=== PATIENT | female | born 1970 | race Two or more races ===

== ENCOUNTER 2024-10-04 08:26 | Emergency (ER) | payer MEDICAID, SELFPAY ==
--- NOTE | 2024-10-04 08:32 | EKG_ITS ---
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
--- NOTE | 2024-10-04 08:42 | XR_ITS ---
Examination: PA lateral chest 2 views Technique: Upright PA lateral chest 2 views Exam date and time: October 04, 2024 0824 hrs. Comparison January 25, 2023 Indications: Onset chest pain today Findings: Normal heart size Mild opacity obscuring detail left cardiac contour and minimal opacity right base No pulmonary edema Impression: Suspicious for early pneumonia right base and lingular segment left upper lobe
--- NOTE | 2024-10-04 08:43 | PD.EDRME ---
Rapid Medical Screening Exam RME Arrival date/time: 10/04/24 08:26 54-year-old female presents to the emergency department with complaints of generalized malaise, chest pain 1 week. I have greeted and performed a focused initial assessment of this patient. Initial appropriate labs ordered at this time. A comprehensive ED assessment and evaluation of the patient and analysis of all test and completion of medical decision making process will be conducted by additional ED provider.
[2024-10-04 08:46] VITALS: BP 166/100; PULSE 86; RESP 24; TEMP 36.8; O2SAT 99; BMI 31.7
--- NOTE | 2024-10-04 09:12 | PD.EDADULT ---
ED General RME/HPI General Chief complaint: Chest Pain Stated complaint: UPPER MID CHEST PAIN RAD. THROUGH BACK X6D Time Seen by Provider: 10/04/24 08:50 Arrival date/time: 10/04/24 08:26 RME / HPI RME / HPI narrative: Patient is a 54 years old female with no significant past medical history presented to the emergency department complaining of chest pain for 1 week. She reports pain is mostly constant, stabbing in nature and is exacerbated by deep breathing, moving and applying pressure on her chest. She reports no PMH but reports her BP was previously found to be elevated. She denies any trauma, fever, chills, SOB, abdominal pain, dysuria symptoms, diarrhea. Related Data Previous Rx's ?Medication ?Instructions ?Recorded Hydrocodone/Acetaminophen * (NORCO 1 tab PO Q6H PRN PAIN #20 tabs 02/22/15 5/325 *) Allergies Allergy/AdvReac Type Severity Reaction Status Date / Time No Known Allergies Allergy Verified 10/04/24 08:30 Review of Systems Review of Systems Systems Reviewed: All systems reviewed, normal except as documented ED Exam Narrative Physical exam: Gen: Well-developed and well-nourished female. HEENT: NCAT, PERRLA, EOMI, MMM, anicteric conjunctivae. CVS: normal S1 and S2. RRR. No M/R/G. Resp: CTA B/L. No rhonchi, rales, crackles or wheezing. Abd: soft, obese, non-tender, non-distended. BS+ in all 4 quadrants. MSK: Good ROM in BUE & BLE. No edema or rash. Neuro: CN II-XII grossly intact. Strength 5/5 in BUE & BLE. Alert and oriented x3. Psych: appears anxious. Course Quality Measures none Orders Category Date Time Status Bedside COVID-19 Antigen Test NOW Care 10/04/24 08:42 Active Bedside Influenza A&B Antigen Test NOW Care 10/04/24 08:42 Completed EKG (ED ONLY) *Do not use* NOW Care 10/04/24 08:32 Completed EKG (ED Only) Stat Exams 10/04/24 08:32 Draft XR chest 2V Stat Exams 10/04/24 08:42 Taken B-Type Natriuretic Peptide Stat Lab 10/04/24 08:56 Completed CBC Stat Lab 10/04/24 08:56 Completed Comprehensive Metabolic Panel Stat Lab 10/04/24 08:56 Completed Lactate (Lactic Acid) Stat Lab 10/04/24 08:56 Completed Lipase Stat Lab 10/04/24 08:56 Completed Magnesium Stat Lab 10/04/24 08:56 Completed Prothrombin Time with INR Stat Lab 10/04/24 08:56 Completed Troponin I Stat Lab 10/04/24 08:56 Completed Ketorolac Inj [Toradol Inj] Med 10/04/24 10:41 Discontinued 15 mg IVP X1 ONE Vital Signs Vital signs: Vital Signs Temperature 98.2 F 10/04/24 08:46 Pulse Rate 86 10/04/24 08:46 Respiratory Rate 24 H 10/04/24 08:46 Blood Pressure 166/100 H 10/04/24 08:46 Pulse Oximetry (%) 99 10/04/24 08:46 Oxygen Delivery Method Room Air 10/04/24 08:46 Procedures -ED EKG Interpretation #1: Date of EK10/04/24 Time of EK:36 Rate: 87 Interpretation: Reviewed by me EKG Impression: Normal sinus rhythm and No acute ST-T changes MDM Patient data External records reviewed:: [facility] previous records Clinical information provided by:: patient Social determinants that could affect healthcare access:: none Patient has the following chronic illnesses:: none How is presenting disease/condition affected by chronic disease/condition?: no chronic disease Evaluation data The following diagnostics were reviewed and interpreted by me:: lab results, radiology exam(s) and EKG tracing(s) Lab and/or radiology exams considered but not ordered:: CTA Interpretation Summary: no acute findings Medications Medications considered but not ordered:: aspirin, statin Medication administrations:: Medication Administration History Discontinued Medications Ketorolac Tromethamine (Ketorolac Inj 30 Mg/Ml Vial) 15 mg IVP X1 ONE Stop: 10/04/24 10:42 Last Admin: 10/04/24 11:10 Dose: 15 mg Documented By: DD as above Consultations Consultation(s) initiated? (list below): No Diagnosis Differential Diagnosis ED Complaint MDM: STEMI, NSTEMI, angina, pneumonia, pericarditis, costochondritis Most likely diagnosis given after review of the tests above:: Costochondritis Admission Indicated Admission indicated?: not indicated Explain why admission is indicated or not indicated:: Cardiac and pulmonary acute problems were ruled out, she will need to establish PCP care and follow up. Admission Request Was there a request for admission?: No Disposition Plan Disposition Plan: Discharge Discharge Attestation Discharge Attestation: The patient and all family members were given an opportunity to ask questions and understood the discharge instructions. Discharge instructions specifically effects, indications for sooner follow up or return to the emergency department, and the expected course of current diagnosis. Patient condition: Stable Medical Decision Making MDM Narrative MDM Narrative: Patient is a 54-year-old female presenting with chest pain for 1 week. The nature of the pain is consistent with musculoskeletal etiology (stabbing, exacerbated by movement and pressure, no significant associated systemic symptoms). Cardiac and pulmonary causes ruled out with normal EKG (sinus rhythm, no ST changes), Well's score of 0, HEART score of 2 (low risk), normal respiratory exam, and absence of systemic findings. Labs are within normal limits, supporting the absence of acute cardiac or pulmonary conditions. Patient appears anxious; reassurance provided, and follow-up with PCP recommended for further evaluation and management. Ibuprofen as needed for pain management. Differential Diagnosis Differential Diagnosis: STEMI, NSTEMI, angina, pneumonia, pericarditis, costochondritis Lab Data 10/04/24 08:56 10/04/24 08:56 Labs: Lab Results 10/04/24 Range/Units 08:56 WBC 7.3 (3.6-11.0) Thou/mm3 RBC 4.77 (4.00-5.20) Miln/mm3 Hgb 13.8 (12.0-16.0) g/dL Hct 40.6 (36.0-46.0) % MCV 85 (80-100) fL MCH 28.9 (25.0-35.0) pg MCHC 34.0 (31.0-37.0) g/dl RDW Std Deviation 39.5 (36.4-46.3) fL Plt Count 309 (140-440) Thou/mm3 Neut % (Auto) 60 (37-80) % Lymph % (Auto) 31 (10-50) % [place] % (Auto) 7 (0-12) % Eos % (Auto) 2 (0-10) % Baso % (Auto) 1 (0-2.5) % Neut # (Auto) 4.4 (1.8-7.7) Thou/mm3 Lymph # (Auto) 2.2 (1.0-4.8) Thou/mm3 [place] # (Auto) 0.5 (0.0-0.8) Thou/mm3 Eos # (Auto) 0.1 (0.0-0.5) Thou/mm3 Baso # (Auto) 0.0 (0.0-0.2) Thou/mm3 Immature Gran # (Auto) 0.02 H (0.00-0.00) Thou/mm3 Absolute Nucleated RBC 0.00 (0.00-0.00) Thou/mm3 Immature Gran % 0 (0-0) % Nucleated RBC % 0 (0) /100 WBC PT 10.9 (9.0-12.2) Seconds INR 1.0 (0.9-1.3) Sodium 140 (136-145) mMol/L Potassium 3.9 (3.4-5.1) mMol/L Chloride 105 (98-107) mMol/L Carbon Dioxide 25.7 (20.0-31.0) mMol/L Anion Gap 9 (7-16) BUN 15 (9-23) mg/dL Creatinine 0.7 (0.6-1.3) mg/dL Estim Creat Clear Calc 78.0 (>60) mL/min eGFR > 60 (60 - ) See Note BUN/Creatinine Ratio 21 H (12-20) Ratio Glucose 124 H (74-106) mg/dL Calculated Osmolality 281 (275-295) Lactic Acid 1.5 (0.4-2.0) mMol/L Calcium 9.9 (8.3-10.6) mg/dL Corrected Calcium 9.9 (8.5-10.1) mg/dL Magnesium 2.2 (1.6-2.6) mg/dL Total Bilirubin 0.6 (0.3-1.2) mg/dL AST 19 (0-34) U/L ALT 21 (10-49) U/L Alkaline Phosphatase 121 H (46-116) U/L Troponin I < 0.002 (0.0-0.045) ng/mL B-Natriuretic Peptide < 20 (0-100) pg/mL Total Protein 7.7 (5.7-8.2) gm/dL Albumin 4.4 (3.5-5.0) gm/dL Globulin 3.3 (2.3-3.5) gm/dL Albumin/Globulin Ratio 1.3 (1.2-2.2) Lipase 38 (12-53) U/L Discharge Plan Plan Patient Disposition: HOME (Self Care) Patient condition on transfer: Stable Prescriptions/Referrals Prescriptions/Med Rec: No Action Hydrocodone/Acetaminophen * (NORCO 5/325 *) 1 TAB tablet 1 tab PO Q6H PRN (Reason: PAIN) Qty: 20 0RF Referrals: Conrad Espinosa MD [Primary Care Provider] - In 1 week Problem List Clinical Impression: Pleuritic chest pain Patient/Caregiver Discharge Instructions Education Materials: ED Chest Pain, Noncardiac Additional Instructions: Establish care with PCP and follow up with PCP within 1 week. You can make an appointment at the [facility]: [address] [place] [address] Take ibuprofen as needed for pain. Return to the ED if symptoms recur or worsen. Print Language: Guinean Stand Alone Forms: Olivia Award Info., Patient Portal Info Letter
[2024-10-04 09:16] LABS: Lactate (Lactic Acid) 1.5 mMol/L (0.4-2.0)
[2024-10-04 09:17] LABS: Basophils % (Auto) 1 % (0-2.5); Eosinophils # (Auto) 0.1 Thou/mm3 (0.0-0.5); Eosinophils % (Auto) 2 % (0-10); Hematocrit 40.6 % (36.0-46.0); Hemoglobin 13.8 g/dL (12.0-16.0); Immature Granulocytes % (Auto) 0 % (0-0); Immature Granulocytes Auto 0.02 Thou/mm3 (0.00-0.00); Lymphocytes # (Auto) 2.2 Thou/mm3 (1.0-4.8); Lymphocytes % (Auto) 31 % (10-50); Mean Corpuscular Hemoglobin 28.9 pg (25.0-35.0); Mean Corpuscular Volume 85 fL (80-100); Monocytes # (Auto) 0.5 Thou/mm3 (0.0-0.8); Monocytes % (Auto) 7 % (0-12); Neutrophils # (Auto) 4.4 Thou/mm3 (1.8-7.7); Neutrophils % (Auto) 60 % (37-80); Nucleated Red Blood Cell % 0 /100 WBC (0); Platelet Count 309 Thou/mm3 (140-440); RDW Standard Deviation 39.5 fL (36.4-46.3); Red Blood Count 4.77 Miln/mm3 (4.00-5.20); White Blood Count 7.3 Thou/mm3 (3.6-11.0)
[2024-10-04 09:32] LABS: Prothrombin Time 10.9 Seconds (9.0-12.2)
[2024-10-04 09:35] LABS: B-Type Natriuretic Peptide < 20 pg/mL (0-100)
[2024-10-04 09:37] LABS: Alanine Aminotransferase 21 U/L (10-49); Albumin, Serum 4.4 gm/dL (3.5-5.0); Albumin/Globulin Ratio 1.3 (1.2-2.2); Alkaline Phosphatase 121 U/L (46-116); Anion Gap 9 (7-16); Aspartate Amino Transferase 19 U/L (0-34); BUN/Creatinine Ratio 21 Ratio (12-20); Bilirubin,Total 0.6 mg/dL (0.3-1.2); Blood Urea Nitrogen 15 mg/dL (9-23); Calcium 9.9 mg/dL (8.3-10.6); Calcium (Corrected) 9.9 mg/dL (8.5-10.1); Carbon Dioxide 25.7 mMol/L (20.0-31.0); Chloride 105 mMol/L (98-107); Creatinine (Component) 0.7 mg/dL (0.6-1.3); Globulin 3.3 gm/dL (2.3-3.5); Glucose 124 mg/dL (74-106); Lipase 38 U/L (12-53); Magnesium 2.2 mg/dL (1.6-2.6); Osmolality,Calculated 281 (275-295); Potassium 3.9 mMol/L (3.4-5.1); Sodium 140 mMol/L (136-145); Total Protein 7.7 gm/dL (5.7-8.2); Troponin I < 0.002 ng/mL (0.0-0.045); eGFR > 60 See Note
[2024-10-04 09:49] VITALS: BP 149/96; PULSE 88; RESP 18; O2SAT 98
[2024-10-04 11:10] VITALS: BP 139/91; PULSE 70; RESP 14; O2SAT 98
[2024-10-04] MEDS: KETOROLAC INJ 30 MG/ML VIAL 15 MG IVP (11:10)
[2024-10-04 12:39] VITALS: BP 129/89; PULSE 75; RESP 18; TEMP 36.7; O2SAT 98
== END 2024-10-04 13:24 | disposition home or self-care (01) ==
PROVIDERS: Nurse Practitioner Primary Care; Student in an Organized Health Care Education/Training Program; Emergency Provider Emergency Medicine; PCP Family Medicine
DX: R07.81 Pleurodynia (principal)
CPT/HCPCS: 36415; 71046; 80053; 83605; 83690; 83735; 83880; 84484; 85025; 85610; 87400; 87811; 93005; 96374; 99284; J1885

== ENCOUNTER 2024-10-09 14:11 | Outpatient (AMB) | payer MEDICAID, SELFPAY ==
--- NOTE | 2024-10-09 14:34 | ACNOTE_ITS ---
Vital Signs 10/09/24 14:35 Height 1.52 m Height Method Stated Weight 71.894 kg Weight Measurement Method Standing Scale BMI 30.9 BP 122/75 Blood Pressure Source Automatic Cuff Blood Pressure Location Left Upper Arm Position Sitting Respiration 19 Pulse 75 Pulse Source Monitor Temp 97.9 F Temp Source Temporal Artery Scan Pulse Oximetry (%) 97 Oxygen Delivery Method Room Air Allergies/Meds Allergies & Medications Allergies No Known Allergies Allergy (Verified 10/09/24 14:35) Medication Reconciliation Hydrocodone/Acetaminophen * (NORCO 5/325 *) 1 tab PO Q6H PRN PAIN #20 tabs 02/22/15 [Rx Confirmed 10/09/24] naproxen 500 mg tablet 500 mg PO BID PRN pain 5 days #10 tabs 10/09/24 [Rx] MA Intake Visit Data Collection New Patient or Established: Established Patient (seen at [facility] within 3 years) Seen by Clinical Staff ONLY (RN/MA): No Pain Present Currently: No Pain scale:: 0 Pain Scale Used: Lala-De Jesus/Numerical Apartment Coordinator Required: No PCP or OBGYN visit in last 3 months: No Hx Now: No Smoking Status Smoking Status: Never smoker Immunization / Flu Flu Vaccine in the Last 12 Months: No Flu Vaccine Exclusion Criteria: Already Received Past Medical History Past Medical History CARDIAC: Negative Congestive Heart Failure RESPIRATORY: Negative Chronic Obstructive Pulmonary Disease (COPD) GENITOURINARY: Negative Renal Disease ENDOCRINE: Negative Diabetes Mellitus Type 1 or Diabetes Mellitus Type 2 Social History SMOKING STATUS: Smoking status: Never smoker Patient Portal Questionaires Social History Tobacco History Smoking Status: Never smoker Review of Systems Report any current symptoms Only answer those that you have currently: Past Medical History Past Medical History Have you ever been diagnosed with any of the following: Cardiology Problems Congestive Heart Failure: No Respiratory Problems Chronic Obstructive Pulmonary Disease (COPD): No Genital/Urinary Problems Renal Disease: No Endocrine Problems Diabetes Mellitus Type 1: No Diabetes Mellitus Type 2: No History of Present Illness HPI Narrative 54 yo female without significant PMH who presented to [facility] chief complaint of chest pain. Patient states he developed sharp chest pain mid sterna l, radiates to her back, increases with deep inspiration, with deep palpation and when laying on either side. She denies cough, rinorrhea, sick contacts, fever,. Patient went to the ED for it a wee ago, was discharged on tylenol without relief. Chest xray and EKG done then where within normal limtis. Labs unremarkable except for fasting glucose 124. On physical exam lungs are clear to auscultation, normal S1 & S2 no murmurs, no rubs. There is tenderness to palpation at the costochondral junction. Patient diagnosed with and counseled about costochondritis. Naproxen prescribed Assessment & Plan Diagnosis / Problem List (1) Acute costochondritis: Status: Acute Assessment & Plan: 54 yo female without significant PMH who presented to [facility] chief complaint of chest pain. Patient states he developed sharp chest pain mid sternal, radiates to her back, increases with deep inspiration, with deep palpation and when laying on either side. She denies cough, rinorrhea, sick contacts, fever,. Patient went to the ED for it a wee ago, was discharged on tylenol without relief. Chest xray and EKG done then where within normal limtis. Labs unremarkable except for fasting glucose 124. On physical exam lungs are clear to auscultation, normal S1 & S2 no murmurs, no rubs. There is tenderness to palpation at the costochondral junction. Patient diagnosed with and counseled about costochondritis. Naproxen prescribed Plan: Naproxen Office Procedures [facility] Level of Care Nursing/Assessment Patient Status: Established Patient Nursing Assessment/Reassessment: Medication Reconciliation, Update PMH in EMR and Vital Signs Coordination of Care: Complex Care and Chronic Disease 1-5, Consent,records obtained, informed consent, Education Simp Pt/Fam and Staff clarify orders Established Patient Charge Established Patient Point Assignment: 85 Established Patient Point Charge: EP Level 3 (80-115)
[2024-10-09 14:35] VITALS: BP 122/75; PULSE 75; RESP 19; TEMP 36.6; O2SAT 97; BMI 30.9
== END 2024-10-09 14:55 | disposition home or self-care (01) ==
LOC: HODAHC 14:11
PROVIDERS: Supervising Provider Internal Medicine; Visit Provider Student in an Organized Health Care Education/Training Program
DX: M94.0 Chondrocostal junction syndrome [Tietze] (principal)
CPT/HCPCS: 99213; G0463